=== PATIENT | female | born 1950 | race Caucasian/White ===

== ENCOUNTER 2025-04-12 20:27 | Emergency (ER) | payer BC, MEDICAID ==
[~2025-04-12] VITALS: Ht 152.4 cm; Wt 72.0 kg
[2025-04-12 20:45] VITALS: TEMP 96.8
--- NOTE | 2025-04-12 20:59 | Physician Documentation ---
History of Present Illness ~ Chief Complaint: Flank Pain Stated Complaint: LOW BACK PAIN Time Seen by MD: 20:43 Mode of Arrival: EMS, Stretcher HPI Patient presents to the emergency room with right-sided flank pain that began in the last few days. Positive nausea yesterday but none currently. She took some Motrin yesterday. No prior instances. No histories of traumas. She does have endorse having some loose stools. Denies history of kidney stones. Denies dysuria Medication Reconciliation Allergies: Coded Allergies: latex (Verified Allergy, Unknown, 04/12/25) shellfish derived (Verified Allergy, Unknown, 04/12/25) Review of Systems ROS All review of systems negative except as per HPI Physical Exam Vital Signs: Temperature: 96.8, Source: Oral, Heart Rate: 80, Respiratory Rate: 17, BP: 137/64, Pulse Oximetry: 100, Weight: 72.000 Physical Exam General: Patient is awake, alert, oriented x4 in no acute distress Head: Normocephalic and atraumatic. Eyes: Conjunctival normal. EOMI. PERRL. ENT: Mucous membranes moist. Neck: Supple, trachea is midline. Chest: Clear to auscultation bilaterally without rales, rhonchi, or wheezes. There is no accessory muscle use or retractions. Cardiac: RRR without murmurs, gallops, or rubs. Abd: Soft, nondistended, mild tenderness to palpation to right flank. No abdominal tenderness to palpation Progress Results/Orders Results/Orders Orders - ZACHARY PERALTA MD Ct Abdomen Pelvis (04/12/25 21:15) Ultrasound Of Abdomen (04/12/25 22:27) Completed Orders - ZACHARY PERALTA MD Cbc/Diff (04/12/25 20:55) Urinalysis, Cult If Indicated (04/12/25 20:55) Ct Abdomen Pelvis (04/12/25 21:15) BMP (04/12/25 20:55) Acetaminophen 1,000mg/100ml Iv (Ofirmev (04/12/25 21:00) Ultrasound Of Abdomen (04/12/25 22:27) Lidocaine 5% Patch (Lidoderm 5% Patch) (04/12/25 23:30) Medications Received in ER Medications (Trade) Dose Ordered Sig/Polo Route PRN Reason Start Time Stop Time Status Last Admin Dose Admin Acetaminophen 100 ml @ 400 mls/hr ONCE ONCE IV 04/12/25 21:00 04/12/25 21:14 DC 04/12/25 21:13 400 MLS/HR Vital Signs 04/12/25 04/12/25 04/12/25 20:45 21:15 23:01 Temp 96.8 Pulse 80 76 74 Resp 17 16 16 B/P (MAP) 137/64 157/70 (99) 141/81 (101) Pulse Ox 100 99 99 Laboratory Tests Test 04/12/25 20:35 04/12/25 20:40 White Blood Count 9.2 Red Blood Count 4.04 L Hemoglobin 12.6 Hematocrit 37.4 Mean Corpuscular Volume 92.4 Mean Corpuscular Hemoglobin 31.3 H Mean Corpuscular Hemoglobin Concent 33.8 Red Cell Distribution Width 13.5 Platelet Count 309 Mean Platelet Volume 9.4 Neutrophils (%) (Auto) 54.8 Lymphocytes (%) (Auto) 34.0 Monocytes (%) (Auto) 8.7 Eosinophils (%) (Auto) 1.8 Basophils (%) (Auto) 0.7 Neutrophils # (Auto) 5.1 Lymphocytes # (Auto) 3.1 Monocytes # (Auto) 0.8 Eosinophils # (Auto) 0.2 Basophils # (Auto) 0.1 CBC Comment Sodium Level 138 Potassium Level 4.2 Chloride Level 101 Carbon Dioxide Level 24.5 Anion Gap 13 Blood Urea Nitrogen 16 Creatinine 0.95 H Estimated GFR/1.73 m2 58 BUN/Creatinine Ratio 16.8 Glucose Level 207 H Calcium Level 9.0 Albumin 3.2 L Chemistry Comments Urine Specimen Description Other Urine Color Yellow Urine Clarity Clear Urine pH 6.0 Urine Specific [place] <=1.005 Urine Protein Negative Urine Glucose (UA) 500 H Urine Ketones 15 H Urine Occult Blood Negative Urine Nitrite Negative Urine Bilirubin Negative Urine Urobilinogen 0.2 Urine Leukocyte Esterase Negative Urine Culture Indicated Not ind Volume Urine Centrifuged 10 ml Urine Comment Medical Decision Making Findings Patient presents to the emergency room with right-sided flank pain as per HPI. Differentials include but are not limited to musculoskeletal pain, kidney stone, aortic pathology, referred pain therefore emergent labs and imaging indicated. CT scan showed abnormality of gallbladder therefore ultrasound performed which was negative for acute pathology but did show stones however negative Garber's sign I do not feel that this is the cause for patient's symptoms. No kidney stone. Given tenderness to palpation he had not feel patient requires investigation to aortic pathology. Patient's symptoms are likely musculoskeletal in nature. Did discuss with the patient and daughter over the phone regarding management and the fact that she has been far under dosed r egarding pain management. The need to follow up with primary care discussed as she may need physical therapy referral. Departure Disposition: HOME / SELF CARE / HOMELESS Impression: Primary Impression: Lumbago Condition: Improved (ERASED) Discharge Instructions: Lumbosacral Strain Additional Instructions: We need to be more aggressive regarding patient's pain management. We will begin Motrin combined with Tylenol. We will also be adding Pepcid to protect from ulcers formation. We will also add Lidoderm patches. I am also prescribing muscle relaxer to be started with precaution of increased risk of falling. Contact primary care she may need referral for physical therapy. It is important to avoid bedrest as much as possible as this will cause the pain to get worse. Try and stay moving. Referrals: NO PRIMARY CARE PROVIDER (PCP) Prescriptions Cyclobenzaprine* (Cyclobenzaprine*) 10 Mg Tablet 1 TAB PO Q8H for muscle spasms for 10 Days, #30 TAB 0 Refills Prov: ZACHARY PERALTA MD 04/12/25 Lidocaine (Lidoderm) 5 % Adh..patch 1 PATCH TOP DAILY for 30 Days, #30 PATCH 0 Refills may wear up to 12 hours Prov: ZACHARY PERALTA MD 04/12/25 Acetaminophen (Tylenol Extra Strength) 500 Mg Tablet 2 TAB PO Q6H PRN PRN for pain or fever for 7 Days, #56 TAB Prov: ZACHARY PERALTA MD 04/12/25 Ibuprofen (Ibuprofen) 600 Mg Tablet 1 TAB PO Q6H for pain, #30 TAB 0 Refills with food Prov: ZACHARY PERALTA MD 04/12/25 Signature Scribe Signature: No scribe Attestation: The note accurately reflects work and decisions made by me.Zachary Peralta MD 04/12/25 23:53 ZACHARY PERALTA MD Apr 12, 2025 20:59
[2025-04-12 21:06] LABS: BASOPHILS # (AUTO) 0.1 X10'3 (0-0.2); BASOPHILS % (AUTO) 0.7 % (0-1); EOSINOPHILS # (AUTO) 0.2 X10'3 (0-0.9); EOSINOPHILS % (AUTO) 1.8 % (0-6); HEMATOCRIT 37.4 % (35.0-45.0); HEMOGLOBIN 12.6 g/dl (12.0-16.0); LYMPHOCYTES # (AUTO) 3.1 X10'3 (1.1-4.8); MEAN CORPUSCULAR HEMOGLOBIN 31.3 PG (27.0-31.0); MEAN CORPUSCULAR HGB CONC 33.8 g/dL (33.0-36.5); MEAN CORPUSCULAR VOLUME 92.4 FL (78-98); MEAN PLATELET VOLUME 9.4 FL (7.4-10.4); MONOCYTES # (AUTO) 0.8 X10'3 (0-0.9); MONOCYTES % (AUTO) 8.7 % (2-12); NEUTROPHILS # (AUTO) 5.1 X10'3 (1.8-7.7); NEUTROPHILS % (AUTO) 54.8 % (42-75); PLATELET COUNT 309 X10'3 (140-440); RED BLOOD COUNT 4.04 X10'6 (4.20-5.60); RED CELL DISTRIBUTION WIDTH 13.5 % (11.5-14.5); WHITE BLOOD COUNT 9.2 X10'3 (4.5-11.0)
[2025-04-12 21:07] LABS: BILIRUBIN,URINE NEGATIVE (Neg); CLARITY,URINE CLEAR (Clear); COLOR,URINE YELLOW (Yellow); GLUCOSE, URINE 500 mg/dl (Neg); KETONES,URINE 15 mg/dl (Neg); LEUKOCYTE ESTERASE ,URINE NEGATIVE (Neg); NITRITES, URINE NEGATIVE (Neg); OCCULT BLOOD,URINE NEGATIVE (Neg); PROTEIN,URINE NEGATIVE (Neg); UROBILINOGEN,URINE 0.2 E.U/dL (0.2-1.0)
[2025-04-12 21:10] LABS: ALBUMIN 3.2 G/DL (3.4-5.0); ANION GAP 13 (8-16); BLOOD UREA NITROGEN 16 MG/DL (7-18); BUN/CREATININE RATIO 16.8 (10.0-20.0); CHLORIDE 101 MMOL/L (99-107); CREATININE 0.95 MG/DL (0.40-0.90); GLUCOSE 207 MG/DL (70-104); SODIUM 138 MMOL/L (135-145); TOTAL CARBON DIOXIDE 24.5 MMOL/L (24-32); eCRCL 38 ML/MIN; eGFR 58 ML/MIN
[2025-04-12 21:12] LABS: POTASSIUM 4.2 MMOL/L (3.5-5.1)
[2025-04-12] MEDS: acetaminophen 1,000mg/100ml IV 100 ML IV ONE (21:13)
[2025-04-12 21:15] LABS: UA COLLECTION TYPE OTHER
--- NOTE | 2025-04-12 22:24 | RADIOLOGY REPORT ---
Exam: CT CT ABDOMEN PELVIS History: Abdominal Pain Comparison Study: None Technique: Multidetector spiral CT of the abdomen and pelvis was performed from lung bases to pubic s ymphysis. Intravenous contrast was administered during this examination. Portal venous imaging was o btained. Axial, coronal and sagittal multiplanar reformats were performed by the technologist on a [employer] workstation. Radiation Dose : 1. Abdomen/Pelvis: CTDIvol 18 mGy, DLP 871 mGy*cm. Findings: Lung Bases: No acute or significant lung base finding. Normal heart size. No pleural or pericardial effusion. Liver: The liver is normal in size. No focal lesions. Normal hepatic vascular enhancement. Gallbladder and Biliary Tree: Large stones measuring 2.3 cm within a distended gallbladder. Spleen: Unremarkable Pancreas: The pancreas is normal in appearance without focal lesions Adrenal Glands: Unremarkable Kidneys: Kidneys demonstrate normal symmetric enhancement without focal lesions, calculi or hydroneph rosis. Bladder: Unremarkable Bowel: Wall thickening of the gastric fundus which is nonspecific and may be from underdistention. Sm all bowel and colon are normal in caliber and distribution. Normal appendix is visualized in the righ t lower quadrant without findings of appendicitis. Ascites: Absent Lymphadenopathy: No mesenteric, retroperitoneal or periportal lymphadenopathy. Abdominal Wall and Mesentery: Unremarkable. Vasculature: The visualized abdominal aorta is normal in size and caliber. Abdominal and pelvic vess els demonstrate normal enhancement. Pelvic Organs: Unremarkable Musculoskeletal: No aggressive focal bony lesions, acute fractures or dislocation. Multilevel spondyl olisthesis throughout the lumbar spine with degenerative disc disease. Partially visualized right pro ximal femur intramedullary jerri. IMPRESSION: Distended gallbladder demonstrating large stones measuring up to 2.3 cm. No significant adjacent infl ammatory changes. Consider further evaluation with ultrasound if clinically indicated. Wall thickening of the gastric fundus which may be from underdistention. Can not rule out developing gastritis or underlying lesion. Consider direct visualization or CT enterography in the nonemergent setting if clinically indicated.
[2025-04-12] MEDS: LIDOcaine 5% patch TP ONE (23:46)
[2025-04-12 23:53] VITALS: BP 137/65; PULSE 70; RESP 16; O2SAT 98
[2025-04-12] MEDS ORDERED: IBUP-1985 PO (23:53)
[2025-04-12] MEDS ORDERED: ACET-1025 PO (23:53)
[2025-04-12] MEDS ORDERED: CYCL-1 PO (23:53)
[2025-04-12] MEDS ORDERED: LIDO700A32 TOP (23:53)
--- NOTE | 2025-04-13 00:45 | RADIOLOGY REPORT ---
RIGHT UPPER QUADRANT ABDOMINAL ULTRASOUND CLINICAL HISTORY: possible cholecystitis COMPARISON: CT obtained earlier the same day. TECHNIQUE: Grayscale and color Doppler ultrasound imaging of the right upper quadrant is performed. FINDINGS: Pancreas: Obscured by artifact from bowel gas. Liver: No discrete hepatic lesions as visualized. The portal vein appears patent. Gallbladder: At least 2 large gallstones are noted measuring up to approximately 2 cm in diameter. No gallbladder wall thickening. No sonographic almonte's sign. Common bile duct: Nondilated. Right Kidney: Measures approximately 9.9 cm in length. No hydronephrosis. Right upper quadrant Inferior vena cava: Visualized portions are grossly patent. IMPRESSION: Cholelithiasis without other sonographic evidence of cholecystitis at this time. If there is persist ent clinical concern, hepatobiliary scan may be obtained to further evaluate.
== END 2025-04-13 00:12 | disposition home or self-care (01) ==
LOC: ER 20:28
DX: M54.50 Low back pain, unspecified (principal); R10.9 Unspecified abdominal pain; R11.0 Nausea; Z91.040 Latex allergy status; Z91.013 Allergy to seafood
CPT/HCPCS: 36415; 74176; 76700; 80048; 81003; 85025; 96365; 96366; 99285; J0131; C1758

== ENCOUNTER 2025-09-25 10:00 | Outpatient (CLI) | payer BC, MEDICAID ==
[~2025-09-25 10:00] MED LIST: ATOR20TA66 PO; IBUP600T52 PO; INSU100C10 SQ; LIDO-52 TOP; LISI10TA27 PO; METO-395 PO; PANT40TA54 PO
--- NOTE | 2025-09-25 12:09 | RADIOLOGY REPORT ---
CLINICAL HISTORY: KIDNEY PAIN TECHNIQUE: Complete ultrasound exam of the kidneys and bladder was performed. COMPARISON: US ULTRASOUND OF ABDOMEN on DOS: 04/12/25, CT CT ABDOMEN PELVIS on DOS: 04/12/25 FINDINGS: The right kidney has normal echogenicity and measures 9.9 cm. There is no focal parenchymal abnormality or evidence for stone. There is no hydronephrosis. The left kidney has normal echogenicity and measures 9.5 cm. There is no focal parenchymal abnormality or evidence for stone. There is no hydronephrosis. The bladder is grossly unremarkable. The prevoid bladder volume is 140 mL and the postvoid bladder volume is 32 mL. IMPRESSION: NO SIGNIFICANT SONOGRAPHIC ABNORMALITY OF THE KIDNEYS.
== END 2025-09-25 23:59 | disposition home or self-care (01) ==
LOC: RAD 10:00
PROVIDERS: ATTEND Physician Assistant
DX: N23 Unspecified renal colic (principal); Z87.19 Personal history of other diseases of the digestive system
CPT/HCPCS: 76770